=== PATIENT | male | born 1965 | race Caucasian/White ===

== ENCOUNTER 2020-10-20 11:46 | Emergency (ER) | payer MEDICAID, MEDICARE ==
[~2020-10-20] VITALS: Ht 185.4 cm; Wt 100.0 kg
[~2020-10-20 11:46] MED LIST: CYCL-394 PO; HYDR-3972 PO
[2020-10-20 13:24] LABS: CLARITY,URINE TURBID (Clear); COLOR,URINE YELLOW (Yellow); GLUCOSE, URINE NEGATIVE (Neg); KETONES,URINE NEGATIVE (Neg); LEUKOCYTE ESTERASE ,URINE LARGE (Neg); NITRITES, URINE POSITIVE (Neg); OCCULT BLOOD,URINE LARGE (Neg); PH,URINE 5.5 (4.8-8.0); PROTEIN,URINE 100 mg/dl (Neg); UROBILINOGEN,URINE 0.2 E.U/dL (0.2-1.0)
[2020-10-20 13:31] LABS: UA COLLECTION TYPE NON-SPECIFIED
[2020-10-20 13:32] LABS: SQUAMOUS EPITHELIAL CELL,UR FEW /LPF (FEW)
[2020-10-20 13:33] LABS: WBC,URINE TNTC /HPF (0-4)
[2020-10-20 13:34] LABS: RBC,URINE 20-50 /HPF (0-2)
[2020-10-20 13:35] LABS: WBC CLUMPS,URINE FEW /HPF (NEGATIVE)
[2020-10-20] MEDS ORDERED: SULF1TAB49 PO (13:39)
[2020-10-20 13:40] LABS: BACTERIA,URINE 2+ /HPF (Neg)
[2020-10-20 14:07] VITALS: BP 140/87
== END 2020-10-20 14:10 | disposition home or self-care (01) ==
LOC: ER 11:47
DX: N45.1 Epididymitis (principal); R19.7 Diarrhea, unspecified; K59.00 Constipation, unspecified; Z88.5 Allergy status to narcotic agent; Z88.8 Allergy status to other drugs, medicaments and biological substances; Z79.899 Other long term (current) drug therapy
CPT/HCPCS: 76870; 81001; 87077; 87088; 87186; 93976; 99284